=== PATIENT | female | born 1990 | race Caucasian/White ===

== ENCOUNTER 2018-01-14 13:55 | Emergency (ER) | payer OTHER ==
[2018-01-14 14:25] VITALS: BP 118/60
--- NOTE | 2018-01-14 14:49 | EDPHY ---
H & P Stated Complaint: fell approx 6 feet off a ladder and landed on left arm. Denies LOC Time Seen by Provider: 01/14/18 14:49 HPI/ROS: HPI: This is a 27-year-old female who presents with Chief Complaint: fell approx 6 feet off a ladder and landed on left arm. Denies LOC Location: Left forearm Quality: Injury Duration: 1 hr prior to arrival Signs and Symptoms: No bleeding, no radiation, no numbness, no weakness, no tingling, no incontinence, no decreased range of motion, + swelling, no pain, no fever Timing: Acute Severity: 4 out of 10 Context: Patient reports that she is right-hand dominant, was standing on a metal ladder, changing a light bulb when she lost her footing and fell towards the left side. She reports that she broke her fall with her left forearm. She reports that she has mild abrasions noted on her left hand and left forearm but no active bleeding. Patient notes a swollen area in the left mid forearm. She denies any back pain, neck pain, elbow pain, wrist pain. Denies LOC/head injury/ neck pain/dizziness/nausea/vomiting/amnesia. Takes extended control. Denies alcohol or drug use. Modifying Factors: None Comment: ROS: see HPI Constitutional: No fever, no chills, no weight loss Eyes: No blurred vision Respiratory: No shortness of breath, no cough Cardiovascular: No chest pain Gastrointestinal: No nausea, no vomiting no diarrhea Genitourinary: No dysuria Extremities: No myalgias Neurologic: No weakness, no numbness Skin: No rashes Hematologic: No bruising, no bleeding MEDICAL/SURGICAL/SOCIAL HISTORY: Medical history: Generally healthy. Does not take any regular medications. Surgical history: Denies Social history: Tobacco user CONSTITUTIONAL: Extremely polite and cooperative adult white female, awake and alert, no obvious distress HEENT: Atraumatic and normocephalic, PERRL, EOMI. no globe entrapment, no raccoon eyes. no Reeves signs.Tympanic membranes clear. No tympanic membrane rupture. Nares patent; no septal hematoma. Oropharynx clear, no exudate and moist pink mucosa. No malocclusion. no dental trauma. Airway patent. No lymphadenopathy. NECK: supple, no midline tenderness, flexion 45 degrees, extension 45 degrees, right and left lateral flexion 45 degrees. No meningismus. Cardiovascular: Normal S1/S2, regular rate, regular rhythm, without murmur rub or gallop. PULMONARY/CHEST: Symmetrical and nontender. no crepitus. Clear to auscultation bilaterally. Good air movement. No accessory muscle usage. ABDOMEN: Soft, nondistended, nontender, no ecchymosis, no rebound, no guarding , no peritoneal signs, no masses or organomegaly. No CVAT. PELVIC: no pain with rocking; bilateral hips flexion 125 degrees, extension 30 degrees, with no pain internal rotation and no pain external rotation. BACK: No midline tenderness, no paraspinous spasm, deep tendon reflexes 2/2, no pain with straight leg raise EXTREMITIES: 2/2 pulses, left forearm shows mild swelling midshaft; no deformities. Left SHOULDER: Arc test abduction to 180, abduction to 45, horizontal flexion 130, horizontal extension to 45, deltoid strength 5/5. No pain with Neer test/Cruz test (impingement). No Tenderness to palpation over AC joint. Left ELBOW: Full extension to 180, flexion to 150, no tenderness over medial epicondyle, no tenderness over lateral epicondyle, no effusion. Left WRIST: Extension to 70, flexion to 80, radial deviation to 20 degree, ulnar deviation to 30, no scaphoid tenderness, no tenderness over ulnar styloid, no tenderness over radial styloid. no clubbing, no cyanosis or edema. NEUROLOGICAL: no focal neuro deficits. GCS 15. SKIN: Warm and dry, no erythema. no rash. Good capillary refill. Source: Patient Exam Limitations: No limitations - Personal History LMP (Females 10-55): Extended Cycle BCP/Inj - Medical/Surgical History Hx Asthma: No Hx Chronic Respiratory Disease: No Hx Diabetes: No Hx Cardiac Disease: No Hx Renal Disease: No Hx Cirrhosis: No Hx Alcoholism: No Hx HIV/AIDS: No Hx Splenectomy or Spleen Trauma: No Other PMH: denies - Social History Smoking Status: Current every day smoker Constitutional: Initial Vital Signs Temperature (C) 36.2 C 01/14/18 14:22 Heart Rate 78 01/14/18 14:22 Respiratory Rate 18 01/14/18 14:22 Blood Pressure 118/60 01/14/18 14:22 O2 Sat (%) 96 01/14/18 14:22 O2 Delivery Mode Room Air Allergies/Adverse Reactions: No Known Allergies Allergy (Unverified 01/14/18 14:22) Home Medications: Medication Instructions Recorded NK [No Known Home Meds] 01/14/18 Medical Decision Making - Diagnostics Imaging Results: Imaging Impressions Forearm X-Ray 01/14/18 14:26 Impression: Dorsal mid forearm soft tissue swelling, with no acute fracture identified. Procedures: Procedure: Splint placement. A left sling was applied by the Emergency Room shale processing technician. After application of the splint I returned and re-examined the patient. The splint was adequately immobilizing the joint and distal to the splint the patient's circulation and sensation was intact. ED Course/Re-evaluation: X-rays and wound care ordered Tetanus up-to-date No signs of neurovascular compromise/tenting of skin/compartment syndrome/ extremities and joints examined above and below area of concern and are neurovascularly intact. X-ray my read shows no signs of fracture; mild soft tissue swelling noted in the right forearm consistent with contusion Due to patient request; given left sling for comfort. Abrasions clean with mild soap and water; bacitracin and clean sterile dressing applied Verbal and written wound care instructions provided. Patient did not hit head or lose consciousness. This patient was seen under the supervision of my secondary supervising physician. I evaluated care for this patient independently. Differential Diagnosis: Differential diagnosis includes but is not limited to radial fracture, ulnar fracture, contusion, olecranon fracture, humerus fracture. Departure - Departure Disposition: Home, Routine, Self-Care Clinical Impression: Contusion of left forearm, initial encounter Abrasion of multiple sites of left upper arm Qualifiers: Encounter type: initial encounter Qualified Code(s): S40.812A - Abrasion of left upper arm, initial encounter Condition: Good Instructions: Contusion in Adults (ED), Abrasion (ED) Additional Instructions: Wear sling on the left upper extremity until pain free but no longer than 7 days. Take Tylenol 650 mg every 4 hours and/or Ibuprofen 600 mg every 8 hours with food as needed for pain. Apply ice for 30 minutes at a time; 2-3 times per day for the next 1-2 days. Clean abrasions daily with mild soap and water; apply topical antibiotic ointment; pat dry and keep covered until fully healed. If pain persist greater than 7 days, follow-up with Orthopedics for further evaluation. The x-rays obtained in the emergency department today demonstrate no evidence of an obvious fracture. Sometimes fractures are not obvious on the initial set of x-rays performed in the ED. For this reason, you should have repeat x-rays performed in 7-10 days if you are having any pain exclude the possibility of an occult fracture. Return to the ER immediately if you experience new or worsening pain, discoloration, numbness, tingling, or any other symptoms that concern you. Referrals: [facility],. [Clinic] - As per Instructions Jeremy Hairston MD [Medical Doctor] - As per Instructions
== END 2018-01-14 15:33 | disposition home or self-care (01) ==
DX: S50.12XA Contusion of left forearm, initial encounter (principal); S40.812A Abrasion of left upper arm, initial encounter; F17.200 Nicotine dependence, unspecified, uncomplicated; W11.XXXA Fall on and from ladder, initial encounter; Y99.8 Other external cause status; Y93.89 Activity, other specified